=== PATIENT | female | born 1940 | race Caucasian/White ===

== ENCOUNTER 2016-11-01 14:50 | Inpatient (IN) | payer OTHER ==
[~2016-11-01] VITALS: Ht 170.2 cm; Wt 45.8 kg
[~2016-11-01 14:50] MED LIST: ASPIRIN81 M1 PO; ATENOLOL25 MG PO; BANOPHEN25 MG PO; CALCIUM600 MG PO; DETROL LA2 MG PO; KLOR-CON 1010 MEQ PO; LASIX20 MG PO; LOVASTATIN40 MG PO; POLY-IRON 150150 MG PO; SENTRY SENIOR PO; SINEMET PO; VITAMIN D310000 IU PO
--- NOTE | 2016-11-01 15:56 | DIAGNOSTIC IMAGING REPORT ---
PROCEDURE: XR CHEST 1 VIEW INDICATION: COUGH TECHNIQUE: Portable AP view 03:22 p.m. COMPARISON: Chest 09/06/2016 and 03/16/2016 FINDINGS: The patient is rotated. Left subclavian Port-A-Cath remains in stable position with the tip at the junction of the SVC/right atrium. The lungs are clear. Heart size, mediastinum and pulmonary vascularity are normal. Mild calcific atherosclerosis of the aorta. Left humerus ORIF with healed fracture. Old right tenth rib fracture. Right neck surgical clips IMPRESSION: 1. No acute changes
--- NOTE | 2016-11-01 18:05 | DIAGNOSTIC IMAGING REPORT ---
PROCEDURE: CTA THORAX WITH CONTRAST INDICATION: Shortness of breath, initial encounter TECHNIQUE: 80 ml of Isovue 370 was injected intravenously and axial images were obtained of the entire thorax with 3D sagittal and coronal MIP reconstructions. COMPARISON: Chest x-ray 11/01/2016 and 09/06/2016. FINDINGS: No evidence of pulmonary emboli. Mild emphysematous changes. Small right lower lobe infiltrate. Bronchial wall thickening consistent with bronchitis. Right middle lobe atelectasis, new since Chest x-ray 09/06/2016. Mild bilateral hilar adenopathy. No effusion. Mild atherosclerosis of the aorta and coronaries. Borderline cardiomegaly. Left-sided Port-A-Cath. Visualized abdomen is unremarkable. Left humerus ORIF. Moderately degenerative changes of the spine. IMPRESSION: 1. No evidence of pulmonary emboli 2. Emphysema with bronchitis 3. Right middle lobe atelectasis new since Chest x-ray 09/06/2016, possibly from mucous plug versus endobronchial lesion 4. Small right lower lobe infiltrate 5. Borderline cardiomegaly 6. Results discussed with Dr. Casas
--- NOTE | 2016-11-01 19:09 | ED NURSING NOTES ---
Clinical Report - Nurses [facility] [address] [place] [address] 11/01/2016 14:51 [id number] Triage time 14:55. Acuity: LEVEL 3. Chief Complaint: "FLU". 14:55 11/01/16. 14:55 11/01/16. ( Pt sent over from [facility] due to flu like symptoms and ALOC). --15:04 Edwin Loza R.N. 14:55 11/01/16. BP: 139/77. HR: 91. RR: 18. O2 saturation: 85% on room air. Temp: 98.5 F (oral). Pain level now unable to obtain. --15:04 Edwin Loza R.N. SEPSIS SCREEN: Sepsis Screen: negative. Negative (no infection suspected/documented). Acute mental status change. Temperature not greater than 38.3 degrees C (101 degrees F) or less than 36 degrees C (96.8 degrees F). Heart rate not greater than 90. Respiratory rate not greater than 20. Systolic blood pressure not less than 90. Mean arterial pressure not less than 65. No other signs of organ dysfunction present. --15:43 Edwin Loza R.N. JOHN COMA SCORE: [place] Coma Scale: 12- eyes open spontaneously (4); best verbal response- incoherent speech (2); best motor response- obeys commands (6). --15:44 Edwin Loza R.N. Acuity: LEVEL 3. --18:25 Edwin Loza R.N. Weight: 63.5 kg estimated. Height/Length: 68 inches Estimated. BMI: 21.3. --14:57 Edwin Loza R.N. Medications Aspirin Low Strength Oral. Carbidopa-Levodopa Oral 50/200 mg, 4x a day. DiphenhydrAMINE HCl Oral. Furosemide Oral 20 mg, daily. Lovastatin Oral (Tablet 40 mg), daily. Poly iron. Potassium Chloride Oral 10 meq, daily. Tolterodine Tartrate Oral (Tablet 2 mg) 1 tablet, every other day. Vitamin D3 Oral. --14:59 Edwin Loza R.N. Centrum Silver Oral. --14:59 Edwin Loza R.N. Ferrous Sulfate Oral 325 mg, 2x a day. --14:59 Edwin Loza R.N. MetFORMIN HCl Oral 500 mg, 2x a day. --15:00 Edwin Loza R.N. Zoloft Oral 25 mg, daily. --15:02 Edwin Loza R.N. Allergies Codeine. Sulfa Drugs. --14:59 Edwin Loza R.N. History Arrived by EMS. Historian: patient. Primary physician (ABILIO). 14:55 11/01/16. 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 BP: 150 / 92. HR: 90. RR: 18. O2 saturation: 96 % room air. PAST MEDICAL HX: Immunizations: status is unknown. SOCIAL HX: Smoker - current status unknown. FALL RISK ASSESSMENT: Fall risk assessment completed per protocol. Risk factors identified include patient impairment of mobility, sensation, hearing and cognition. Fall interventions initiated. Side rails up x2. Brakes on Bed in low position. Patient visible from nurses' station and identified as a fall risk. Call light in reach of patient. Instructed not to get up without assistance. --15:04 Edwin Loza R.N. SOCIAL HX: The patient has had contact with a sick family member. --15:41 Edwin Loza R.N. SOCIAL HX: Former smoker. No alcohol use or drug use. She has had contact with a sick individual. (sick contact with individuals of [facility]). --18:25 Edwin Loza R.N. PROBLEMS: Seizure. TIA - Transient Ischemic Attack. Skull tumor. Non-Hodgkin's lymphoma (clinical). Leukocytosis. Atrial Fibrillation. Syncope. CVA - Cerebrovascular Accident. Fall. Hip Fracture. GI Bleeding. UTI - Urinary Tract Infection. Anemia. Osteoporosis. Malignant Lymphoma. Parkinson's Disease. Hyperlipidemia. Hypertension. Near Syncope. Immunizations. Parkinsons. Femur ca.. Brain Tumor. --15:03 Edwin Loza R.N. Dysphagia. Paralysis Agitans. Malignant neoplasm of brain. --15:47 Edwin Loza R.N. ADDITIONAL SURGERIES: Colonoscopy. Eye, rt. Fracture Repair. Head for medi-port, . --15:03 Edwin Loza R.N. Assessment 14:55 11/01/16. --15:04 Edwin Loza R.N. Interventions 14:55 11/01/16. 14:55 11/01/16. ID and allergy band on patient. To treatment room. --15:04 Edwin Loza R.N. PHYSICAL ASSESSMENT 15:11/01/16. To room via stretcher. GENERAL / NEURO / PSYCH: The patient is disoriented. Altered mental status. Patient has no response. No response to questions and commands. No response to commands (tracks, non verbal, able to follow commands). RESPIRATORY: Respirations not labored. SKIN: Skin is warm and dry. --15:04 Edwin Loza R.N. NURSING PROGRESS NOTES 15:11/01/16. The plan of care for this patient has been created. Pulse oximeter applied. Patient gowned. Head of bed elevated. Reassurance given to the patient. Two patient identifiers checked. Call light placed in reach. Side rails up x 2. Bed placed in lowest position. Brakes of bed on. Brakes of chair on. Patient ready for evaluation- chart flagged and notification provided. --15:05 Edwin Loza R.N. 15:11/01/16. Monitoring of patient in place. Pulse oximeter applied. classroom monitor applied. NIBP monitor applied. --15:05 Edwin Loza R.N. 15:11/01/16. Finger stick glucose: 69 mg/dL. --15:05 Edwin Loza R.N. 15:29 11/01/2016 Site #1 started via IV in the left antecubital space with an 20g angiocath, with aseptic technique and good blood return; two attempts. Blood drawn: rainbow set. Labeled in the presence of the patient and sent to the lab. Saline lock flushed with 10 mL saline. --15:29 Edwin Loza R.N. 15:30 11/01/16. --15:30 Edwin Loza R.N. 15:29 11/01/16. BP: 132/76. HR: 80. RR: 16. O2 saturation: 98% on nasal cannula at 2 liters/minute. --15:30 Edwin Loza R.N. EKG time: (15:16). EKG was performed by a tech and shown to the ED physician. --15:34 HillaryEsau eller 15:53 11/01/16. Patient ID band checked for patient name and birthdate: patient confirmed. Catheterized urine collected with return of yellow-colored urine; sample sent to lab for urinalysis and culture. Specimen labeled in the presence of the patient (In and Out, completed by Mellissa SPICER, and assist by tech). --15:53 Edwin Loza R.N. 15:53 11/01/16. Patient ID band checked for patient name and birthdate: patient confirmed. Flu swab obtained by RN via nasal swab. Labeled in the presence of the patient and sent to lab. --15:53 Edwin Loza R.N. 17:18 11/01/2016 Started bag #1 1000 mL IV Fluids IV NS (Saline); at 1000 mL/hr over 1 hour(s) via site #1 via IV pump. Allergies verified and confirmed 5 rights. Completed per protocol. --17:43 Edwin Loza R.N. 18:22 11/01/2016 IV Fluids IV NS Discontinued: bag #1. Total amount infused: 1 Liter mL. IV patency established. IV site checked: no pain, redness, or swelling. IV flushed thoroughly. --18:22 Edwin Loza R.N. 18:22 11/01/16. BP: 140/64. HR: 77. RR: 14. O2 saturation: 97% on nasal cannula at 2 liters/minute. --18:23 Edwin Loza R.N. 18:23 11/01/16. --18:23 Edwin Loza R.N. 18:24 11/01/16. ( Repositioned patient). --18:24 Edwin Loza R.N. ( Dr. Asecncio called). --18:46 Cyndie Baker ER Tech1 ( H/p forms given to family member.). --18:50 Cyndie Baker ER Tech1 19:01 11/01/2016 Started 1 gm of Ceftriaxone IVPB in bag #1 50 mL; at 150 mL/hr over 20 minute(s) via site #1; Allergies verified and confirmed 5 rights. IV patency established. IV site checked: no pain, redness, or swelling. IV flushed thoroughly pre- and post-medication administration. Completed per protocol. --19:01 Edwin Loza R.N. ( report received from Edwin SPICER). --19:08 Sai Baeza R.N. 19:10 11/01/16. Care transferred and report given. --19:10 Edwin Loza R.N. 19:11 11/01/16. ( Updated family on pts status and that pt will be admitted. Started abx, reassessment remains unchanged.). --19:11 Edwin Loza R.N. 19:18 11/01/16. Patient waiting for admit bed. --19:18 Edwin Loza R.N. 19:21 11/01/2016 Ceftriaxone IVPB Discontinued: bag #1 infused. Total amount infused: 50 mL. IV patency established. IV site checked: no pain, redness, or swelling. IV flushed thoroughly. --19:21 Edwin Loza R.N. ( Pt asleep in bed CBG 90, per nurse coming off shift pt is at baseline from when she arrived at hospital. Pt has facial droop present which is also normal per RN coming off shift.). --19:33 Sai Baeza R.N. DISPOSITION / DISCHARGE Cardiac rhythm: sinus rhythm. Admitted (20:37 Nov 01 2016). Report was given to a nurse via a phone call. Report included patient's care, treatment, medications, reviewed medication reconcilliation, and condition (including any recent changes or anticipated changes). Report was acknowledged. ( pt on 2L report called). Patient's personal items include: shirt and pants. --20:37 Sai Baeza R.N. 20:36 11/01/16. BP: 143/73. HR: 74. RR: 16. O2 saturation: 97%. Temp: 98.0 F. Pain level now 0/10. --20:37 Sai Baeza R.N. Locked/Released at 11/02/2016 1:22 by Sai Baeza R.N.
--- NOTE | 2016-11-01 19:09 | ED CLINICAL REPORT ---
Clinical Report - Physicians/Mid Levels [facility] [address] [place] [address] 11/01/2016 14:51 Patient: COUSINSNEERAJ Time Seen: 14:58; initial patient contact. Arrived- By private vehicle. Historian- family. HISTORY OF PRESENT ILLNESS Chief Complaint: "FLU". This started about 1 weeks ago and is still present. It was gradual in onset. The patient has had a cough, fever and chills. No difficulty breathing, nausea, vomiting, diarrhea or sputum production. The patient has had contact with a sick individual. Similar symptoms previously: None. Recent medical care: The patient was seen recently in the office. REVIEW OF SYSTEMS The patient has had weakness. She has had fatigue. All systems otherwise negative, except as recorded above. PAST HISTORY Seizure. TIA - Transient Ischemic Attack. Skull tumor. Non-Hodgkin's lymphoma (clinical). Leukocytosis. Atrial Fibrillation. Syncope. CVA - Cerebrovascular Accident. Fall. Hip Fracture. GI Bleeding. UTI - Urinary Tract Infection. Anemia. Osteoporosis. Malignant Lymphoma. Parkinson's Disease. Hyperlipidemia. Hypertension. Near Syncope. Immunizations. Parkinsons. Femur ca.. Brain Tumor. Dysphagia. Paralysis Agitans. Malignant neoplasm of brain. SURGERIES: Colonoscopy. Eye, rt. Fracture Repair. Head for medi-port. Medications: Zoloft Oral 25 mg, daily. MetFORMIN HCl Oral 500 mg, 2x a day. Ferrous Sulfate Oral 325 mg, 2x a day. Centrum Silver Oral. Aspirin Low Strength Oral. Carbidopa-Levodopa Oral 50/200 mg, 4x a day. DiphenhydrAMINE HCl Oral. Furosemide Oral 20 mg, daily. Lovastatin Oral (Tablet 40 mg), daily. Poly iron. Potassium Chloride Oral 10 meq, daily. Tolterodine Tartrate Oral (Tablet 2 mg) 1 tablet, every other day. Vitamin D3 Oral. Allergies: Codeine. Sulfa Drugs. SOCIAL HISTORY Former smoker. No alcohol use or drug use. ADDITIONAL NOTES The nursing notes have been reviewed with agreement regarding the chief complaint, PMH and patient medications and allergies. PHYSICAL EXAM Vital Signs: 11/01/2016 14:55 BP: 139/77. HR: 91. RR: 18. O2 saturation: 85%. Temp: 98.5 F. Have been reviewed. Blood pressure normal. Heart rate normal. Respiratory rate normal. Temperature normal. Oxygen saturation low. Appearance: Alert. No acute distress. Eyes: Eyes normal inspection. ENT: Pharynx normal. The mucous membranes are not dry. Neck: Normal inspection. No JVD. CVS: Normal heart rate and rhythm. Heart sounds normal. Respiratory: No respiratory distress. Breath sounds normal. Skin: Skin warm and dry. Normal skin color. No rash. Poor skin turgor, mild. Extremities: No calf tenderness. No lower extremity edema. Neuro: Altered mental status. Patient has no response. Eyes open spontaneously. Best verbal response: none. Best motor response: obeys commands. LABS, X-RAYS, AND EKG Chest X-ray: No acute disease. No infiltrate. Views: AP. Interpretation time: 1545. Chest CT: (1. No evidence of pulmonary emboli 2. Emphysema with bronchitis 3. Right middle lobe atelectasis new since Chest x-ray 09/06/2016, possibly from mucous plug versus endobronchial lesion 4. Small right lower lobe infiltrate 5. Borderline cardiomegaly). Chest CT performed with contrast. Prior studies were not available for comparison. The study was interpreted by the radiologist and discussed with the radiologist. Interpretation time: 18:39. Laboratory Tests: UA-Culture if indicated: (CESAR: 11/01/2016 15:50) ( MsgRcvd 11/01/2016 16:36) Final results Test Result Flag Units (Reference) URINE COLOR MICHAEL URINE APPEARANCE SL CLOUDY URINE GLUCOSE NEGATIVE (NEGATIVE) URINE BILIRUBIN 1+ (NEGATIVE) URINE BILIRUBIN ICTOTEST POSITIVE (NEGATIVE) URINE KETONE 1+ (NEGATIVE) URINE SPECIFIC GRAVITY >= 1.030 (1.010-1.030) URINE PH 5.5 (5.0-8.0) URINE PROTEIN 1+ (NEGATIVE) URINE UROBILINOGEN 0.2 EU/dL (0.2-1.0) URINE NITRITE NEGATIVE (NEGATIVE) URINE BLOOD NEGATIVE (NEGATIVE) URINE LEUK ESTERASE NEGATIVE (NEGATIVE) URINE RBC NONE SEEN rbc/hpf (0-1) URINE WBC 3-5 wbc/hpf (0-1) URINE EPITHELIAL CELLS RARE EPI/hpf (0-5) URINE BACTERIA NONE SEEN (NONE SEEN) URINE COMMENT CULT NOT INDICATED FEW HYALINE CASTS2+ MUCUS1+ AMORPHOUS URATESURINE CULTURES ARE SET-UP BASED ON THE FOLLOWING CRITERIA:POSITIVE NITRITEPOSITIVE LEUKOCYTE ESTERASEGREATER THAN 10 WHITE BLOOD CELLSMODERATE (2+) OR GREATER BACTERIA CBC w Diff: (CESAR: 11/01/2016 15:20) ( [facility] [place] 15:45) Final results Test Result Flag Units (Reference) WHITE BLOOD COUNT 8.9 K/uL (4.5-11.5) RED BLOOD COUNT 4.82 M/uL (4.00-5.20) HEMOGLOBIN 14.3 gm/dL (12.0-16.0) HEMATOCRIT 44.3 % (36.0-46.0) MEAN CELL VOLUME 92 fL (80-100) MEAN CORPUSCULAR HGB 30 pg (26-34) MEAN CORPUSCULAR HGB CONC 32 g/dL (31-37) RED CELL DISTRIBUTION WIDTH 15.5 H % (11.6-14.8) PLATELET COUNT 201 K/uL (150-400) NEUTROPHIL % 85.6 H % (50-75) LYMPH % 4.8 L % (25-40) MONO % 9.6 % (3-14) EOSINOPHIL % 0 % (0-4) BASOPHIL % 0 % (0-2) [id number]: (CESAR: 11/01/2016 15:20) ( [facility] 11/01/2016 15:57) Final results Test Result Flag Units (Reference) D-DIMER QUANTITATIVE 1.22 H ug/mLFEU (0.27-0.52) The primary value of this quantitative assay relates toits negative predictive value (i.e. exclusion) of pulmonaryembolism/deep vein thrombosis/DIC.Elevated levels of d-dimer may also occur with:, age, cancer, inflammation, liver disease,post-op, infection, hematoma, coronary disease, peripheralarteriopathy, bleeding disorders and thrombolytic treatment.Results should be correlated with other clinical andradiological data.Testing Methodology: Latex Immunoassay BNP: (CESAR: 11/01/2016 15:20) ( [facility] [place]/01/[place] 16:02) Final results Test Result Flag Units (Reference) B-TYPE NATRIURETIC PEPTIDE 173 H pg/ml (5-100) [id number]: (CESAR: 11/01/2016 15:34) ( [facility] [place] 11/01/2016 16:35) Final results Test Result Flag Units (Reference) LACTIC ACID SEPSIS PROTOCOL 1.0 mmol/L (0.4-2.0) [id number]: (CESAR: 11/01/2016 15:20) ( [facility] [place]/01/[place] 16:11) Final results Test Result Flag Units (Reference) PROCALCITONIN 0.5 ng/mL (0-0.5) PCT Concentration: Interpretation : Risk/option for action PCT <=0.5 ng/mL : Systemic : Low risk forinfection(sepsis): progression to severeis not likely. : systemic infection.Local bacterial : CAUTION-PCT levelsinfection is : below 0.5 ng/mL do notpossible. : exclude an infection,because localizedinfections (withoutsystemic signs) may beassociated with suchlow levels. If PCT ismeasured very earlyafter a bacterialchallenge (usually <6hours), these valuesmay still be low. Inthis case PCT shouldbe re-assessed 6-24hours later. PCT >0.5 and : Systemic infection: Moderate risk for<= 2 ng/mL : (sepsis) is : progression to severepossible, but : systemic infection.other conditions : The patient should beare known to : closely monitoredelevate PCT. : both clinically andby re-assessing PCTwithin 6-24 hours. PCT > 2 ng/mL : Systemic infection: High risk for(sepsis) is likely: progression to severeunless other : systemic infection.causes are known. : PCT >= 10 ng/mL : Important systemic: High likelihood ofinflammatory : severe sepsis orresponse, almost : septic shock.exclusively due to:severe bacterial :sepsis or septic :shock. : CHEM 13 PANEL: (CESAR: 11/01/2016 15:20) ( MsgRcvd 11/01/2016 16:05) Final results Test Result Flag Units (Reference) GLUCOSE 76 mg/dL (70-110) BUN 21 H mg/dL (7-18) CREATININE 1.2 mg/dL (0.6-1.3) Estimated GFR 46.30 mL/min Estimated GFR- 56.11 mL/min Note: Persistent reduction over 3 months in eGFR<60 mL/min/1.73 m2 defines CKD. Patients with eGFR values>=60 mL/min/1.73 m2 may also have CKD if evidence ofpersistent proteinuria. Additional information may be foundat www.kidney.org. SODIUM 142 mmol/L (136-145) POTASSIUM 3.7 mmol/L (3.5-5.1) CHLORIDE 101 mmol/L (98-107) CARBON DIOXIDE 29 mmol/L (21-32) CALCIUM 9.0 mg/dL (8.5-10.1) TOTAL PROTEIN 6.6 g/dL (6.4-8.2) ALBUMIN 3.8 g/dL (3.3-5.0) BILIRUBIN, TOTAL 0.5 mg/dL (0.0-1.0) ALKALINE PHOSPHATASE 82 U/L (46-116) AST (SGOT) 27 U/L (15-37) ALT (SGPT) 17 U/L (12-78) MAGNESIUM 1.5 L mg/dL (1.8-2.4) CPK 169 U/L (24-260) TROPONIN I 0.33 ng/mL (0.00-1.5) TROPONIN REFERENCE RANGE:<0.1 NEGATIVE0.1-1.5 INDETERMINANT>1.5 POSITIVE ABG: (CESAR: 11/01/2016 15:30) ( MsgRcvd 11/01/2016 15:48) Final results Test Result Flag Units (Reference) FIO2 28 % (20-101) ABG MODE OF DELIVERY NC MODIFIED VERNELL TEST POSITIVE? YES ABG PATIENT RESP RATE 20 /MIN ARTERIAL BLOOD GAS SITE RR ARTERIAL BLOOD GAS pH 7.39 (7.35-7.45) ABG PCO2 42.3 mmHg (35-45) ABG PO2 76.3 mmHg (60.0-80.0) ABG BASE EXCESS 0.8 H mmol/L (-6.0--6.0) ABG HCO3 25.8 mmol/L (20.0-26.0) ABG TCO2 27.1 mmol/L (24.0-30.0) ABG ReCrC6y 76.6 H mmHg (7.0-14.0) *NOTE: Normal rangeis based on aFIO2 of 21% ABG SAT O2 95.2 % (95.1-100.0) ABG TOTAL HEMOGLOBIN 13.2 g/dL (12.0-16.0) ABG O2 HEMOGLOBIN 93.7 L % (95.0-100.0) ABG CARBOXYHEMOGLOBIN 1.5 % (0.5-1.5) ABG METHEMOGLOBIN 0.1 L % (0.4-1.5) ABG RHEMOGLOBIN 4.7 % Rapid Influenza Screen: (CESAR: 11/01/2016 15:20) ( MsgRcvd 11/01/2016 15:53) Final results SPECIMEN DESCRIPTION: ... Test Result Flag Units (Reference) RAPID INFLUENZA SCREEN DATE: 11/01/16 INFLUENZA A: NEGATIVE SCREEN FOR INFLUENZA A INFLUENZA B: NEGATIVE SCREEN FOR INFLUENZA B RAPID INFLUENZA NEGATIVE FOR "A" "B". . PROGRESS AND PROCEDURES Discussed case with hospitalist, ([phone] Dr. Ascencio, will admit). Reviewed test results and need for additional work-up. Health care provider will see patient in hospital. Disposition: Admitted to Acute Care. Condition: good. Admit decision based on need for monitoring and IV antibiotics. CLINICAL IMPRESSION Bacterial pneumonia. Empiric antibiotics given in the ED. Hypoxia. INSTRUCTIONS Follow-up: Screening today revealed the patient's blood pressure to be in the hypertensive range. The patient was admitted and blood pressure will be managed during the admission. (Electronically signed by Yevgeniy Casas Dr. 11/01/2016 20:08)
--- NOTE | 2016-11-01 19:09 | ED ORDER SUMMARY ---
..... Patient: NEERAJ MARTINEZ OrderSheet [facility] VisitID: [id number] [place] [address] 76y, F Registration Date/Time: 11/01/2016 ORDER SHEET Weight: 63.5 kg (estimated) Allergies: Codeine, Sulfa Drugs GENERAL ORDERS: Chest 1V Urgent (15:15 11/01/2016 Freddy Christianson) (Ack 15:22 LNations ER Tech1) (15:29 JBoardley R.N.) Blood Culture (No) (N/A) Urgent (15:15 11/01/2016 Freddy Christianson) (Ack 15:22 LNations ER Tech1) (15:36 LNations ER Tech1) Rapid Influenza Screen (Nasal Pharyngeal) (...) Urgent (15:15 11/01/2016 Freddy Christianson) (Ack 15:22 LNations ER Tech1) (15:29 JBoardley R.N.) UA-Culture if indicated Urgent (15:16 11/01/2016 Freddy Christianson) (Ack 15:22 LNations ER Tech1) (15:51 JBoardley R.N.) Cardiac Panel Stat (15:16 11/01/2016 Freddy Christianson) (Ack 15:22 LNations ER Tech1) (15:29 JBoardley R.N.) BNP Urgent (15:16 11/01/2016 Freddy Christianson) (Ack 15:22 LNations ER Tech1) (15:29 JBoardley R.N.) D-Dimer Urgent (15:16 11/01/2016 Freddy Christianson) (Ack 15:22 LNations ER Tech1) (15:29 JBoardley R.N.) PCT (Procalcitonin) Urgent (15:16 11/01/2016 Freddy Christianson) (Ack 15:22 LNations ER Tech1) (15:29 JBoardley R.N.) Lactic Acid for Sepsis Protocol Urgent (15:16 11/01/2016 Freddy Christianson) (Ack 15:22 LNations ER Tech1) (15:36 LNations ER Tech1) ABG (G) Urgent (15:30 11/01/2016 Freddy Christianson) (Ack 15:31 LNations ER Tech1) (15:53 JBoardley R.N.) CTA Thorax w Cont (No) (28/10.2) Urgent (16:50 11/01/2016 Freddy Christianson) (Ack 17:01 LTapper) (18:04 LNations ER Tech1) MEDICATION ORDERS: IV FLUIDS: IV Saline Lock (15:16 11/01/2016 Freddy Christianson) (15:29 JBoardley R.N.) IV NS : initial bolus none -, then 1000 mL/hr for X1 (NOW) (16:49 11/01/2016 Freddy Christianson) (Ack 16:54 JBoardley R.N.) (17:43 JBoardley R.N.) Ceftriaxone IV 1 gm/50mL (NOW) (18:50 11/01/2016 Freddy Christianson) (Ack 18:51 JBoardley R.N.) (19:01 JBoardley R.N.) ORDER SHEET NOTES: [Electronically signed by Yevgeniy Casas Dr. (20:08 11/01/2016)] [Electronically signed by Sai Baeza R.N. (:22 11/02/2016)] [Electronically locked/signed by Sai Baeza R.N. (:11/02/2016)]
--- NOTE | 2016-11-01 19:09 | ED ORDER SUMMARY ---
..... Patient: NEERAJ MARTINEZ OrderSheet [facility] VisitID: [id number] [place] [address] 76y, F Registration Date/Time: 11/01/2016 ORDER SHEET Weight: 63.5 kg (estimated) Allergies: Codeine, Sulfa Drugs GENERAL ORDERS: Chest 1V Urgent (15:15 11/01/2016 Freddy Christianson) (Ack 15:22 LNations ER Tech1) (15:29 JBoardley R.N.) Blood Culture (No) (N/A) Urgent (15:15 11/01/2016 Freddy Christianson) (Ack 15:22 LNations ER Tech1) (15:36 LNations ER Tech1) Rapid Influenza Screen (Nasal Pharyngeal) (...) Urgent (15:15 11/01/2016 Freddy Christianson) (Ack 15:22 LNations ER Tech1) (15:29 JBoardley R.N.) UA-Culture if indicated Urgent (15:16 11/01/2016 Ferddy Christianson) (Ack 15:22 LNations ER Tech1) (15:51 JBoardley R.N.) Cardiac Panel Stat (15:16 11/01/2016 Freddy Chrsitianson) (Ack 15:22 LNations ER Tech1) (15:29 JBoardley R.N.) BNP Urgent (15:16 11/01/2016 Freddy Christianson) (Ack 15:22 LNations ER Tech1) (15:29 JBoardley R.N.) D-Dimer Urgent (15:16 11/01/2016 Freddy Christianson) (Ack 15:22 LNations ER Tech1) (15:29 JBoardley R.N.) PCT (Procalcitonin) Urgent (15:16 11/01/2016 Freddy Christianson) (Ack 15:22 LNations ER Tech1) (15:29 JBoardley R.N.) Lactic Acid for Sepsis Protocol Urgent (15:16 11/01/2016 Freddy Christianson) (Ack 15:22 LNations ER Tech1) (15:36 LNations ER Tech1) ABG (G) Urgent (15:30 11/01/2016 Freddy Christianson) (Ack 15:31 LNations ER Tech1) (15:53 JBoardley R.N.) CTA Thorax w Cont (No) (28/10.2) Urgent (16:50 11/01/2016 Freddy Christianson) (Ack 17:01 LTapper) (18:04 LNations ER Tech1) MEDICATION ORDERS: IV FLUIDS: IV Saline Lock (15:16 11/01/2016 Freddy Christianson) (15:29 JBoardley R.N.) IV NS : initial bolus none -, then 1000 mL/hr for X1 (NOW) (16:49 11/01/2016 Freddy Christianson) (Ack 16:54 JBoardley R.N.) (17:43 JBoardley R.N.) Ceftriaxone IV 1 gm/50mL (NOW) (18:50 11/01/2016 Freddy Christianson) (Ack 18:51 JBoardley R.N.) (19:01 JBoardley R.N.) ORDER SHEET NOTES: [Electronically signed by Yevgeniy Casas Dr. (20:08 11/01/2016)] [Electronically signed by Sai Baeza R.N. (:22 11/02/2016)] [Electronically locked/signed by Sai Baeza R.N. (:11/02/2016)]
[2016-11-01 21:02] VITALS: BP 169/81
[2016-11-01] MEDS ORDERED: FERROUS SULFAT324 MG PO (22:45)
[2016-11-01] MEDS ORDERED: CENTRUM SILVER ULTR1 (22:49)
[2016-11-01] MEDS ORDERED: ZOLOFT25 MG PO (22:50)
[2016-11-01] MEDS ORDERED: CARBIDOPA PO ×2 (22:50)
[2016-11-01] MEDS ORDERED: LEVOD PO ×2 (22:50)
[2016-11-01] MEDS ORDERED: [UNRECOGNIZED DRUG - OTHER] PO (22:53)
[2016-11-01] MEDS ORDERED: GUAIFENESIN PO (22:53)
--- NOTE | 2016-11-01 23:40 | NUR ---
Pt arrived via stretcher from ED to room 304. Total assist slide transfer to bed. Smiling alert waving, denied pain, VSS SBP 150's, skin intact no issues, incontinent of urine, cleansed placed attends on, oral care done by staff, 2 assist to BSC per pt request no void very unsteady minimal weight bearing, taking po meds and thins without difficulty. Left eye drooping and red per baseline. MD aware. Bed alarm on for safety/fall prevention.
--- NOTE | 2016-11-01 23:40 | HISTORY AND PHYSICAL ---
ADMITTED: 11/01/2016 HISTORY OF PRESENT ILLNESS: The patient is a 76-year-old lady who was brought in to Dr. Aaron's office in [place] this morning. She was quite lethargic and had markedly decreased strength and quite significant change in her overall condition compared to her appearance several days ago when he had seen her at her assisted living home. She had quite significant decrease in oxygen with oxygen saturation on room air in the low 80s. He felt she had most likely developed pneumonia and had her transferred to [facility] Emergency Department. Initially, when seen in the emergency department, she was very noncommunicative and lethargic and not really able to respond to questions at all nor follow commands. She was later evaluated on the floor when she was admitted to the ICU and was able to answer questions, was up, sitting and alert and had quite a different appearance. MEDICAL/SURGICAL HISTORY: Past medical history: Remarkable for a remote head tumor. She says this was not exactly a brain tumor, but it was removed a number of years ago. She has a defect in the parietal frontal area where an obvious remote surgery took place. She also has history of Parkinson disease, osteoporosis, history of lymphoma, history of a mild CVA, history of GI bleeding, and also some remote fracture of her left humerus, remote fracture of her left hip. She also has a history of a basal cell carcinoma on her eyelid. Past surgical history: Remarkable for removal of the head tumor as noted. She also has had remote tonsillectomy and adenoidectomy. She had removal of a basal cell carcinoma from the left lower eyelid. She also has had a hysterectomy. She has had ORIF of a left humeral fracture and left hip fracture. She has had 5 children. MEDICATIONS: Include: 1. Potassium 10 mEq daily. 2. Iron tablets 324 mg b.i.d. 3. Carbidopa/levodopa extended release 50/200 one 4 times daily. 4. Furosemide 20 mg every other day in the morning. 5. Lovastatin 40 mg daily. 6. Zoloft 25 mg daily. 7. Tolterodine 50 mg daily extended release type. 8. Guaifenesin p.r.n. to help with phlegm. 9. Metformin, at one point, 500 mg twice daily, thought it is not clear that she is continuing to take this. ALLERGIES: 1. INCLUDE SULFA. SOCIAL HISTORY: Indicates the patient is . She states her this last May of a sudden type of situation. She is not really sure exactly what he had. She is currently living in an assisted living type of situation, is doing well with this. She is a former smoker, but quit when she was in her early 20s. She has never been one to drink much alcohol. She was exposed to secondhand smoke. 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 Respiratory: Remarkable for some increased chest congestion and coughing over the last 2 or 3 days, significantly worse today. Cardiovascular: Okay with no major heart problems. Gastrointestinal: Okay currently with no acute problems. Genitourinary: Okay. She is generally continent, though she does wear a protective undergarment currently. Musculoskeletal: Unremarkable for current complaints. Neurologic: Remarkable for some confusion and decreased level of consciousness when she initially arrived in the emergency department. By the time she arrived on the floor she was doing much better, alert and fairly well-oriented and able to answer most questions appropriately. Psychiatric: Okay. CODE STATUS: From conversation with the emergency department doctor and family, indicated the patient is NO CODE. This was something I verified independently with the patient and she agreed that she was a NO CODE STATUS. PHYSICAL EXAMINATION: GENERAL: Reveals the patient to be an elderly woman, initially minimally responsive, but able to be sitting up and following commands when she arrived on the floor in the ICU. VITAL SIGNS: Show temperature on arrival to the ICU to be 98.4. Pulse is in the 80s and fairly regular. Blood pressure is in the 170/80 range. Oxygen saturation is 99% on 2 L of oxygen by nasal prongs. HEENT: Head shows no acute trauma. There is scarring in the anterior parietofrontal area with evidence of a bony defect and adjacent Port-A-Cath type device is located subcutaneously, which has been in place a long period of time. Ear canals and tympanic membranes are normal. Eyes show ectropion of the left lower eyelid with chronic conjunctival inflammation and some mattering around the left eye. Right eye is okay. Fundi are not well seen. Nose is clear. Mouth and oral cavity show somewhat dry mucosa. Upper dentures in place. Lower jaw is edentulous. NECK: Shows no adenopathy. Carotid pulses are normal. There is a grade 2/6 carotid bruit left and right. BREASTS: Show no masses. There is no axillary adenopathy. CHEST: Reveals generally decreased breath sounds. There are some rhonchi and a few rales at the bases, a little more prominent on the right, perhaps than the left, but not markedly so. HEART: Reveals normal S1 and S2 with a grade 2-3/6 systolic murmur along the left sternal border. There is no diastolic murmur. ABDOMEN: Nontender with no organomegaly or mass. Bowel tones are normal. PELVIC: Not done. RECTAL: Not done. EXTREMITIES: Show trace edema, left and right. +2 dorsalis pedis pulses are noted left and right. NEUROLOGIC: Reveals the patient to be alert in the ICU on arrival with ability to answer questions. She knows she is at [facility] in [place]. She is not exactly sure of the date. Motor and sensory examinations are normal. There is no pronounced tremor. The patient does have somewhat of a slightly latency of response to questions at times. LAB/IMAGING: Laboratory studies show hemoglobin to be 14.3, hematocrit is 44.3, white blood cell count is 8900. ABG done initially in the emergency department showed pH 7.39, pO2 76.3 and pCO2 42.3. D-dimer is elevated at 1.22. Sodium is 142, potassium 3.7, chloride 109, CO2 27, glucose 76, creatinine 1.2, BUN 21. Lactic acid is okay at 1.0. Procalcitonin 0.5. Magnesium is 1.5. Troponin I is 0.33. Total bilirubin 0.5, SGOT is 27, SGPT 17, alkaline phosphatase is 82. Influenza screen is negative. Chest x-ray: Shows heart size to be normal with no significant abnormalities in the lung farris on the standard chest x-ray. Chest CT scan: Shows right lower lobe infiltrate and right middle lobe atelectasis with heart size otherwise okay and no major effusion. IMPRESSION/PLAN: 1. The patient is presenting with right lower lobe pneumonia and right middle lobe atelectasis. She has received ceftriaxone in the emergency department. She will be given azithromycin on arrival here in the intensive care unit and we will continue the combination 2 g of ceftriaxone and 500 mg of azithromycin daily IV while she is in the hospital, with the azithromycin limited to 3 doses. She shows a low magnesium level and this will be corrected. 2. Other long-term problems include Parkinson disease, and she will be continued on her usual carbidopa for this. 3. She also has a left eye chronic conjunctivitis situation and this will be treated with bacitracin ophthalmic ointment applied twice daily if patient will tolerate this. We will continue her Zoloft and we will continue the usual dose of furosemide 20 mg every morning on even numbered days only. She will most likely be in the hospital 2 midnights. The patient's care will be transferred to Dr. Aaron, her usual MD, in the morning if he wishes to assume care. If not, then she will maintain her status on the Hospitalist Service.
--- NOTE | 2016-11-02 01:23 | ED MAR SUMMARY ---
..... Medication Administration Record [facility] [address] [place] [address] Patient: NEERAJ MARTINEZ Visit ID: [id number] 76y, F Weight: 63.5 kg Height/Length: 68 in BMI: 21.3 ALLERGIES: Codeine, Sulfa Drugs Start 17:18 11/01/2016 Edwin Loza R.N., Stop 18:22 11/01/2016 Edwin Loza R.N. Medication Administered: IV NS (SALINE), Dose: IV Fluids over 1 hour(s), Rate: 1000 mL/hr, Dispensed: 1000 mL bag, Site: #1 left AC. Medication Ordered: IV NS : initial bolus none -, then 1000 mL/hr for X1 (NOW). Start 19:01 11/01/2016 Edwin Loza R.N., Stop 19:21 11/01/2016 Edwin Loza R.N. Medication Administered: CEFTRIAXONE [IVPB], Dose: 1 gm IVPB over 20 minute(s), Rate: 150 mL/hr, Dispensed: 50 mL bag, Site: #1 left AC. Medication Ordered: Ceftriaxone IV 1 gm/50mL (NOW).
--- NOTE | 2016-11-02 01:23 | ED MED RECONCILIATION SUMMARY ---
Patient: NEERAJ MARTINEZ Medication Reconciliation Report [facility] VisitID: [id number] [address] [place] [address] 76y, F Registration Date/Time: 11/01/2016 Weight: 63.5 kg Height/Length: 68 in. BMI: 21.3 ALLERGIES: Codeine, Sulfa Drugs The patient's Home Medications are listed below: THE FOLLOWING MEDICATIONS NEED TO BE RECONCILED: Aspirin Low Strength Oral Carbidopa-Levodopa Oral 50/200 mg, 4x a day Centrum Silver Oral DiphenhydrAMINE HCl Oral Ferrous Sulfate Oral 325 mg, 2x a day Furosemide Oral 20 mg, daily Lovastatin Oral (40 mg), daily MetFORMIN HCl Oral 500 mg, 2x a day Poly iron Potassium Chloride Oral 10 meq, daily Tolterodine Tartrate Oral (2 mg) 1 tablet, every other day Vitamin D3 Oral Zoloft Oral 25 mg, daily The source(s) of the original Home Medication information: Not obtained. The following Medications were given to the patient in the Emergency Department: IV NS IV Fluids bolus 0, then 1000 mL/hr, administered: 11/01/2016 5:18:00 PM Ceftriaxone [IVPB] IVPB bolus 0, then 1 gm 150 mL/hr, administered: 11/01/2016 7:01:00 PM The following Medications were prescribed to the patient: None.
--- NOTE | 2016-11-02 01:23 | ED MED RECONCILIATION SUMMARY ---
Patient: NEERAJ MARTINEZ Medication Reconciliation Report [facility] VisitID: [id number] [address] [place] [address] 76y, F Registration Date/Time: 11/01/2016 Weight: 63.5 kg Height/Length: 68 in. BMI: 21.3 ALLERGIES: Codeine, Sulfa Drugs The patient's Home Medications are listed below: THE FOLLOWING MEDICATIONS NEED TO BE RECONCILED: Aspirin Low Strength Oral Carbidopa-Levodopa Oral 50/200 mg, 4x a day Centrum Silver Oral DiphenhydrAMINE HCl Oral Ferrous Sulfate Oral 325 mg, 2x a day Furosemide Oral 20 mg, daily Lovastatin Oral (40 mg), daily MetFORMIN HCl Oral 500 mg, 2x a day Poly iron Potassium Chloride Oral 10 meq, daily Tolterodine Tartrate Oral (2 mg) 1 tablet, every other day Vitamin D3 Oral Zoloft Oral 25 mg, daily The source(s) of the original Home Medication information: Not obtained. The following Medications were given to the patient in the Emergency Department: IV NS IV Fluids bolus 0, then 1000 mL/hr, administered: 11/01/2016 5:18:00 PM Ceftriaxone [IVPB] IVPB bolus 0, then 1 gm 150 mL/hr, administered: 11/01/2016 7:01:00 PM The following Medications were prescribed to the patient: None.
--- NOTE | 2016-11-02 01:23 | ED MAR SUMMARY ---
..... Medication Administration Record [facility] [address] [place] [address] Patient: NEERAJ MARTINEZ Visit ID: [id number] 76y, F Weight: 63.5 kg Height/Length: 68 in BMI: 21.3 ALLERGIES: Codeine, Sulfa Drugs Start 17:18 11/01/2016 Edwin Loza R.N., Stop 18:22 11/01/2016 Edwin Loza R.N. Medication Administered: IV NS (SALINE), Dose: IV Fluids over 1 hour(s), Rate: 1000 mL/hr, Dispensed: 1000 mL bag, Site: #1 left AC. Medication Ordered: IV NS : initial bolus none -, then 1000 mL/hr for X1 (NOW). Start 19:01 11/01/2016 Edwin Loza R.N., Stop 19:21 11/01/2016 Edwin Loza R.N. Medication Administered: CEFTRIAXONE [IVPB], Dose: 1 gm IVPB over 20 minute(s), Rate: 150 mL/hr, Dispensed: 50 mL bag, Site: #1 left AC. Medication Ordered: Ceftriaxone IV 1 gm/50mL (NOW).
--- NOTE | 2016-11-02 01:23 | ED DISCHARGE INSTRUCTIONS ---
Patient: NEERAJ MARTINEZ General Instructions [facility] VisitID: [id number] [address] [place] [address] 76y, F Registration Date/Time: 11/01/2016 Bacterial pneumonia. Empiric antibiotics given in the ED. Hypoxia. INSTRUCTIONS Follow-up: Screening today revealed the patient's blood pressure to be in the hypertensive range. The patient was admitted and blood pressure will be managed during the admission. (Electronically signed by Yevgeniy Casas Dr. 11/01/2016 20:08)
--- NOTE | 2016-11-02 01:23 | ED DISCHARGE INSTRUCTIONS ---
Patient: NEERAJ MARTINEZ General Instructions [facility] VisitID: [id number] [address] [place] [address] 76y, F Registration Date/Time: 11/01/2016 Bacterial pneumonia. Empiric antibiotics given in the ED. Hypoxia. INSTRUCTIONS Follow-up: Screening today revealed the patient's blood pressure to be in the hypertensive range. The patient was admitted and blood pressure will be managed during the admission. (Electronically signed by Yevgeniy Casas Dr. 11/01/2016 20:08)
[2016-11-02 03:14] VITALS: BP 125/64
[2016-11-02 06:50] VITALS: BP 127/61
[2016-11-02 11:12] VITALS: BP 93/62
--- NOTE | 2016-11-02 12:57 | NUR ---
Patient's daughter visited early this morning. Patient has been resting since then. Patient is hard of hearing, but able to answer questions and make her needs known. [place] cream to patient's bottom to prevent breakdown, will continue Q2 hour turns. Will continue to monitor patient.
[2016-11-02 14:40] VITALS: BP 104/67
--- NOTE | 2016-11-02 14:59 | NUR ---
Pt with Junior score of 13, WAFFLE mattress in place, vigilent turning initiated, barrier cream to periarea for prevention of skin issues associated with incontinence, will continue to monitor.
--- NOTE | 2016-11-02 15:00 | NUR ---
I discussed with the patient their current medications, possible side effects, and answered questions.
--- NOTE | 2016-11-02 16:28 | NUR ---
NUTRITION ASSESSMENT: S: Pt admitted with dx/o PNA, hypoxia. PMH includes "head tumor", parkinsons, osteoporosis, lymphoma, mild CVA, GIB, left humerous fx, basal cell carcimoma. PO intake mostly por per staff, ate some of her oatmeal mostlyh bites (picked at breakfast), did not eat much lunch. Pt with overal poor appetite. Per post form pt desires trial of tube feeding "until able to eat again". Spoke with hospitalist regarding my concerns of pt wt loss (see wts below) and poor appetite, states that he will talk with pt and family regarding concerns of wts and eating/appetite. She does accept boost shakes/juice, howver, per report. O: Diet Rx: General Mechanical Soft Thin liquids NKFA wts: 44.7 kg Ht: 67" IBW: 54-68 kg BMI: 15.4 Wt hx: (09/07/16) 45 kg (03/17/16) 49.7 kg (03/03/14) 50.9 kg Est Kcals: ~7470-0864 kcals per day Est Pro: ~60-70 g per day Meds Incl: carbidopa, lasix, mag chloride, KCL, sertraline, IV ABOs, zithromax, see eMar for complete list/detials. Labs Incl: (11/02) glucose 80, BUN 20, Creat 0.9, Na+ 142. L+ 3.4, mag 1.5, Ca+ 8.0, HCT 37.3, HGB 12.1, MCV 91, MCH 30, albumin 3.8, total pro 6.6 Skin: Junior Score 13; skin fragile, waffle overalay in place Assessment & Plan: Pt with poor appetite, per previous admission notes, pt has had poor appetite which likely since last summer. May see wts fluctuate with diuretic tx (lasix rx), Rev'd meds and labs. Rec consider appetite stimulant such as Remeron? MD to discuss nutrition support with family this afternoon/nichelle. Rec high harper high protein diet with mighty shakes q meal and boost bid between meals to help optimize intake. Rec MVI with minerals daily to help meet micronutrient needs. RD to follow up and monitor nutrition indices prn/protocol.
--- NOTE | 2016-11-02 18:02 | Progress Note ---
Subjective General Patient was seen and examined today. Patient was headed in the right direction and patient was dealing well overnight. Patient spiked a fever last night and had been afebrile throughout the entire day. Patient was slated to be discharged however, patient in the afternoon spike another fever. Patient was explained that her treatment can be incomplete and that she may have residual infection. Patient was adament that she needed to return home, and promised that she would follow up with her pmd as an outpatient. Patient was told that she is risking permanent injury, and possible if she were to leave ama. Patient understood the risks and still was adament that she leave.
--- NOTE | 2016-11-02 18:08 | NUR ---
Patient has had family in several times to visit. Patient resting comfortably in between. No complaints of pain, nausea, or vomiting. Patient didn't eat much lunch but was interested in eating more of her dinner. Will continue to monitor patient until reporting off to next nurse.
[2016-11-02 18:47] VITALS: BP 113/60; BP 65/36
[2016-11-02 22:41] VITALS: BP 125/66
[2016-11-03] VITALS (7 sets, daily range): BP systolic 121–1121; BP diastolic 59–72
--- NOTE | 2016-11-03 04:02 | NUR ---
Pt alert, forgetful, able to make needs known, moist non productive cough, 90% RA, 2 L n/c 95-96%, VSS, total assist for turning, incontinent of urine, taking po. Does not use call light bed alarm on safety and fall prevention.
--- NOTE | 2016-11-03 14:19 | NUR ---
NUTRITION FOLLOW UP NOTE: Pt is eating today per staff, makes food preferences known likes egg salad sandwiches, pudding, V8, ice cream and boost. Still recommend appetite stimulant such as remeron? No wt loss noted. Foods and fluids of choice. RD to follow up prn/protocol.
--- NOTE | 2016-11-03 17:15 | NUR ---
Patient has had a good day. Is getting up to the bedside commode and chair with walker and assistance. No complaints of pain, nausea, or vomiting. Patient's coughing is decreasing and she oxygen sats on room air are currently 92-94% while patient is up in the chair. Bed and chair alarm on for patient safety. Family at bedside for part of the day. Will continue to monitor patient until reporting off to next nurse.
--- NOTE | 2016-11-03 18:18 | Progress Note ---
Subjective General Pt is much more improved compared to the day prior, pt is communicating at baseline and is able to eat appropriately. Patient has not had any fevers and has had limited cough. Physical Exam Vital Signs / I&Os Vital Signs Date Time Temp Pulse Resp B/P Pulse O2 O2 Flow FiO2 Ox Delivery Rate 11/03 1426 98.1 75 20 143/63 95 Nasal 2.0 Cannula 11/03 1139 98.4 75 20 142/72 100 Room Air 2.0 11/03 0745 2.0 11/03 0708 97.5 78 18 121/63 97 Room Air 2.0 11/03 0307 99.0 70 20 128/60 91 Room Air 11/02 2241 97.9 80 20 125/66 100 Nasal 2.0 Cannula 11/02 1950 2.0 11/02 1941 2.0 11/02 1847 97.2 93 20 113/60 95 Nasal 2.0 Cannula I&O 11/02 0800 11/02 1600 11/03 0000 Intake Total 200 240 804 Output Total 390 112 300 Balance -190 128 504 General Appearance Alert, Oriented X3, No acute distress HEENT PERRLA, Moist mucous membranes Lungs Clear to auscultation, Normal air movement Neck No JVD, No masses, No thyromegaly Cardiovascular Regular rate and rhythm, Normal S1 and S2, No murmurs, gallops, rubs Abdomen Normal bowel sounds, No tenderness, No guarding, No masses Extremities Normal pulses Skin No Significant Lesions Psych/Mental Status Confused, - as per family pt is mentating at baseline Assessment and Plan Problem List 1. Pneumonia Plan - pt has a diagnosis of pneumonia - will continue with antibiotics - anticipated dischare in 1-2 days 2. Parkinson disease Plan - established, stable - c/w medications 3. Altered mental status, unspecified Plan - pt initially presented with altered mental status and decreased po intake - as the patient improved so did her mentation - as per family she is mentating at her baseline - will continue with po encourgement
[2016-11-04 02:44] VITALS: BP 154/77
[2016-11-04 06:51] VITALS: BP 144/82
[2016-11-04] MEDS ORDERED: CEPHALEXIN500 MG PO (11:10)
[2016-11-04] MEDS ORDERED: MAG6464 MG PO ×2 (11:12→11:57)
--- NOTE | 2016-11-04 11:14 | Provider's Discharge Care Plan ---
Problem, Goal, Plan Problem List 1. Pneumonia Goals: Improved health/wellness Instructions: Follow up as directed, Increase activity level, Take meds as directed 2. Hypomagnesemia Goals: Improved health/wellness Instructions: Follow up as directed, Take meds as directed
[2016-11-04 11:28] VITALS: BP 145/79
[2016-11-04] MEDS ORDERED: KLOR-CON 1010 MEQ PO (11:57)
[2016-11-04 14:39] VITALS: BP 144/76
[2016-11-04 15:30] VITALS: BP 144/76
--- NOTE | 2016-11-04 18:15 | NUR ---
SHIFT SUMMARY: PT HAS INTERMITTENT CONFUSION, [place]. IN AM, PT WAS VERY RESISTANT, REFUSED TO WAKE UP. ONCE AWAKE, PT MORE COOPERATIVE WITH CARE. WEAK GAIT WITH TRANSFERS, 1-2 PERSON ASSIST. SATS WNL ON ROOM AIR. DC ORDERS REC'D. DC INSTRUCTIONS AND ORDERS EXPLAINED TO DAUGHTER, WHO VERBALIZES UNDERSTANDING OF DC INSTRUCTIONS AND FOLLOW UP CARE. PT RETURNING TO HER ADULT FAMILY HOME. ESCORTED BY CP VIA WC TO PRIVATE VEHICLE DRIVEN BY DAUGHTER. DC TO AF IN STABLE CONDITION.
--- NOTE | 2016-11-04 21:57 | DISCHARGE SUMMARY ---
ADMIT DATE: 11/01/2016 DISCHARGE DATE: 11/04/2016 ADMITTING DIAGNOSES: Includes: 1. Pneumonia 2. Parkinson disease 3. Chronic conjunctivitis 4. Depression, anxiety DISCHARGE DIAGNOSES: 1. Pneumonia 2. Parkinson disease 3. Chronic conjunctivitis 4. Depression, anxiety BRIEF HISTORY: This is a 76-year-old lady who was brought to Dr. Aaron's office in [place] the morning of 11/01/2016. She was quite lethargic and had markedly decreased strength and quite significant change in her overall condition compared to her appearance several days prior. She had quite significant decrease in her oxygen with oxygen saturations on room air in the low 80s. She felt she had most likely developed pneumonia and Dr. Aaron had recommend transfer to [facility] to the emergency department because of the likelihood of pneumonia. Initially when the patient was seen in the emergency department, she was very noncommunicative, lethargic, and not really able to respond to questions or follow any commands. She was later evaluated upon admission to the ICU. The patient was answering questions appropriately, sitting up, alert and oriented. HOSPITAL COURSE: The patient was admitted to the hospital and started on IV antibiotics for her pneumonia. She very gradually improved and slowly weaned off her oxygen and is feeling significantly better today. PHYSICAL EXAMINATION: VITAL SIGNS: On the day of discharge, blood pressure is 149/79, pulse is 70, respiratory rate is 18, O2 saturation is 95% on room air, T-max is 37.3 degrees Celsius. GENERAL: This is an elderly, but otherwise fairly well-appearing female sitting in a chair in no apparent distress. HEENT: Head is atraumatic, normocephalic. Trachea is midline, there is no JVD. HEART: S1, S2, regular rate and rhythm. No S3, S4, gallops, or rubs. There is 2/ 6 systolic murmur, increased at the base. LUNGS: Still have very mild crackles in bilateral lower farris, but otherwise with good air movement and clear. ABDOMEN: Soft, nontender, nondistended without hepatosplenomegaly or masses. Bowel sounds are active. There is no peripheral edema. DISCHARGE INSTRUCTIONS/MEDICATIONS: 1. Discharge plan: The patient was discharged to her adult family home with instructions to follow up with her primary care provider within 3-5 days. She was also advised to get a BMP and potassium within the next week. 2. Diet: Mechanical soft diet. 3. Activity: Up with assist. 4. Discharge medications include: a. Keflex 500 mg p.o. b.i.d. x7 days. b. Magnesium 535 mg p.o. b.i.d. Keflex C x7 days. c. Lasix 20 mg p.o. every other day. d. Lovastatin 40 mg p.o. at bedtime. e. Potassium chloride 10 mEq p.o. daily. f. Detrol LA 2 mg p.o. daily. g. Ferrous sulfate 324 mg p.o. daily. h. Multivitamin 1 tablet p.o. daily. i. Carbidopa/levodopa 1 tablet p.o. q.i.d. j. Sertraline 25 mg p.o. daily. k. Cough syrup with codeine, so guaifenesin with codeine 5 mL p.o. q.i.d. p.r.n. cough. In closing, it was a pleasure being involved in the care of the patient. Please do not hesitate to contact me if you have any questions or concerns. Pager number [phone].
== END 2016-11-04 18:15 | DRG 195 ==
LOC: ED SRH 14:50 → TRANS SRH 18:49 → CC SRH 18:49
PROVIDERS: ADMIT Internal Medicine
DX: J18.9 Pneumonia, unspecified organism (principal); R09.02 Hypoxemia; R50.81 Fever presenting with conditions classified elsewhere; H10.402 Unspecified chronic conjunctivitis, left eye; G20 Parkinson's disease; F32.9 Major depressive disorder, single episode, unspecified; F41.9 Anxiety disorder, unspecified; Z95.828 Presence of other vascular implants and grafts
CPT/HCPCS: 81460; 85241; 85244; 90004; 90047; 90065; 90074; 90098; 90100; 90616; 91320; 91400; 91556; 92031; 92132; 92610; 92720; 93004; 95059